=== PATIENT | male | born 1945 | race Caucasian/White ===

== ENCOUNTER 2022-01-15 08:44 | Inpatient (IN) | payer MEDICARE, SELFPAY ==
[2022-01-15] VITALS (13 sets, daily range): BP systolic 121–150; BP diastolic 75–99; PULSE 57–123; RESP 14–18; TEMP 36.4–36.7; O2SAT 94–99; BMI 34.5; BMI 36.6
[2022-01-15] MEDS: Lactated Ringers 1,000 ML 15 ML IV (09:27)
--- NOTE | 2022-01-15 09:51 | OP.PCM_ITS ---
Problems Associated Problem List Diagnoses (1) Lumbar stenosis: Report of Operation Date of Procedure: 01/15/22 Pre-Operative Diagnosis: 1. Lumbar stenosis, L4-5, L5-S1 with spondylosis 2. Lumbar degenerative disc disease L4-5, L5-S1 Post-Operative Diagnosis: 1. Lumbar stenosis, L4-5, L5-S1 with spondylosis 2. Lumbar degenerative disc disease L4-5, L5-S1 Surgery/Procedure Performed:: 1. L4-5 posterior lumbar interbody fusion 2. L5-S1 posterior lumbar interbody fusion 3. Insertion of intervertebral biomechanical device x2 4. Structural allograft for spinal fusion 5. L4 bilateral laminectomies, foraminotomies, facetectomies, decompression of nerve roots 6. L5 bilateral laminectomies, foraminotomies, facetectomies, decompression of nerve roots 7. S1 bilateral laminectomies, foraminotomies, facetectomies, decompression of bilateral nerve roots 8. L4-5 posterior lateral fusion 9. L5-S1 posterior lateral fusion 10. Pedicle screw fixation 11. Local autograft for spinal fusion 12. Neuro monitoring bilateral upper and bilateral lower extremities Description of Surgical Findings:: The patient is a 76-year-old male with intractable back and leg pain. Image studies confirm the above diagnoses. He has failed conservative treatment to include medication, physical therapy and injections. The patient opted for operative intervention understanding the risk to include but not limited to infection, bleeding, damage to nerves arteries and veins, possibility of spinal fluid leak, nonunion, hardware failure, continued pain, need for further surgery, deep vein thrombosis, pulmonary embolism, heart attack, risk of stroke or . The patient was identified in the preoperative holding area. There he received preoperative IV antibiotics Ancef and was then transferred to the operative suite. Once in the operative suite after general endotracheal anesthesia was established, the patient was positioned prone on the [place] operating table. All bony prominences were padded accordingly. The lumbar spine was prepped and draped in a sterile fashion. Bear hugger's were not turned on until the drapes were placed and sealed with [place]. A midline incision was made and taken down to the level of the lumbodorsal fascia. The fascia was divided and subperiosteal dissection was taken down to the level of the bilateral transverse processes and sacral ala of L4, L5, and S1. Deep retractors were placed. A bone scalpel was used to perform cuts in the lamina of L4 and L5 then a series of Kerrisons and rongeurs was used removing the spinous process and lamina at L4 and L5. Then facetectomies of greater than 50% were performed as well as foraminotomies decompressing the bilateral nerve roots. Given the severity of the stenosis I needed to perform wide bilateral laminectomies and near complete facetectomies at L4-5 and L5-S1 in order to decompress the neural elements thus creating instability necessitating fusion. The nerve roots and dura were identified and retracted medially. Then a knife was used to perform annulotomy's at L4-5 and L5-S1 on the right. Endplate elevator, curettes and pituitaries were used to remove disc material. The endplates were prepared with a rasp. An appropriate sized intervertebral peek cage device measuring 14 mm was packed with morselized cancellous allograft and impacted into position at L4-5 completing the posterior lumbar interbody fusion at L4-5. An appropriate sized intervertebral peek cage device measuring 11 mm was packed with morselized cancellous allograft and impacted into position at L5-S1 completing the posterior lumbar interbody fusion at L5-S1. I then proceeded with pedicle screw fixation. Starting points were found at the junction of the superior articular process and transverse process and sacral ala. A power bur was used for the starting points. Pedicle probes were placed bilaterally and then 6.5 x 55 mm screws were placed bilaterally at L4 and L5, 6.5 x 50 mm screws were placed bilaterally at S1. The screws were tested with intraoperative neurophysiologic monitoring and tested within normal limits. Connecting rods were then applied and secured with set screws. I then proceeded with the posterior lateral fusion. This was accomplished by decorticating the transverse processes and sacral ala at L4, L5, and S1. This decorticated bone was then bridged with loca l autograft from the decompression as well as morselized cancellous allograft therefore completing the posterior lateral fusion at L4-5 and L5-S1. The incision was then thoroughly irrigated. Tisseel was placed over the dura as a hemostatic agent. A deep drain was placed. The fascia was closed with #1 Vicryl, subcutaneous with 2-0 Vicryl and skin with 2-0 nylon. A sterile dressing was applied with 4 x 4's ABD and tape. Sponge instrument and needle counts were correct at the end of the case. Neurophysiologic monitoring was maintained at baseline throughout the duration of the case. The patient was extubated and taken to the PACU without incident Surgeon: Teddy Maria Type of Anesthesia: General Drains: Hemovac Estimated Blood Loss (mL): 350 cc Fluids Replaced: 2900 cc Grafts/Implants Used: Unified spine, Talos, Vitae OS, DBM Complications None Admit VTE Documentation VTE Present on Admission: No
--- NOTE | 2022-01-15 09:51 | PCM.PN.ORT ---
Subjective Subjective The patient was seen and examined postoperatively in the PACU. He is resting comfortably. His pain is controlled. He denies any numbness tingling or weakness Objective Data Objective Data Vital Signs: Vital Signs Temp Pulse Resp BP Pulse Ox O2 Del Method 97.5 F L 57 L 16 150/83 H 99 Room Air 01/15/22 09:23 01/15/22 09:23 01/15/22 09:23 01/15/22 09:23 01/15/22 09:23 01/15/22 09:23 Oxygen Delivery Method Room Air Weight: 255 lb Body Mass Index (BMI) 34.5 Physical Exam Const alert, oriented x3 and no apparent distress General Appearance: cooperative and comfortable HEENT normocephalic and head/scalp atraumatic Eyes EOMs intact bilaterally and conjunctivae normal Neck full ROM General: normal visual inspection Chest inspection of chest normal and palpation of chest normal Resp normal respiratory effort and normal air movement Cardio regular rate, regular rhythm and peripheral pulses 2+ throughout GI soft to palpation, non-tender and non-distended Back/Spine Back/Spine Narrative: Dressing clean dry and intact. Drain in place and functioning with small amount of serosanguineous fluid in the drain Cervical Spine: cervical ROM normal Thoracic Spine / Upper Back: normal to inspection Lumbar Spine / Lower Back: normal to inspection Extremity normal to inspection, full ROM, normal capillary refill, no clubbing, cyanosis or edema and no calf tenderness Skin no rashes or lesions noted General Skin Exam: no breakdown Neuro oriented x3, CN's II-XII intact bilaterally, moves all extremities, no focal motor deficits, no sensory deficits noted and deep tendon reflexes 2+ bilaterally Motor Exam: strength 5/5 throughout and muscle tone normal throughout Assessment & Plan Assessment/Plan (1) Lumbar stenosis: PLAN: Okay to admit to floor See orders Pain control and mobilization as tolerated. Back brace on at all times. Continue antibiotics while drain in place Discharge planning, likely home tomorrow
--- NOTE | 2022-01-15 09:51 | PCM.DC.SUM ---
Providers Date of Admission: 01/15/22 Primary Care Physician: Dr. Yanci Tolentino MD Reason For Visit: L4-5 POSTERIOR INTERBODY FUSTION,DECOMPRESSION, Diagnosis Discharge Diagnosis (1) Lumbar stenosis: Status: Acute Code(s): M48.061 - Spinal stenosis, lumbar region without neurogenic claudication Medications at Discharge Home Medications fluoxetine 20 mg capsule (Prozac) 20 mg PO DAILY DEPRESSION 12/19/21 levothyroxine 50 mcg capsule 50 mcg PO DAILY THYROID 12/19/21 lutein 20 mg capsule 20 mg PO DAILY SUPPLEMENT 12/19/21 melatonin 10 mg capsule 10 mg PO QHS SLEEP 12/19/21 metoprolol tartrate 25 mg tablet 25 mg PO DAILY BP 12/19/21 multivitamin 1 cap PO DAILY SUPPLEMENT 12/19/21 rosuvastatin 40 mg tablet (Crestor) 40 mg PO QHS CHOLESTEROL 12/19/21 hydrocodone-acetaminophen 5-325mg 5mg-325mg 1 tab PO Q6H 7 days #28 tabs 01/15/22 Hospital Course Operations - (L4-5, L5-S1 posterior lumbar interbody fusion, decompression, posterior spinal fusion with instrumentation) Summary of Care Provided Minutes Spent on Discharge: 15 Hospital Course: The patient is a 76-year-old male who underwent L4-5, L5-S1 posterior lumbar interbody fusion, decompression, posterior spinal fusion with instrumentation, use of allograft on 01/15/2022. He was subsequently admitted. The hospitalist was consulted for medical management. The patient progressed well. His pain was controlled and he was mobilizing well. His drain was pulled on postoperative day 1. He was subsequently discharged home on 01/16/2022 to follow-up with Dr. Maria in 3 weeks Physical Exam Const alert, oriented x3 and no apparent distress General Appearance: cooperative, comfortable and well kempt HEENT normocephalic and head/scalp atraumatic Eyes EOMs intact bilaterally and conjunctivae normal Neck full ROM General: normal visual inspection Chest inspection of chest normal and palpation of chest normal Resp normal respiratory effort and normal air movement Effort and Inspection: able to speak in complete sentences Cardio regular rate and peripheral pulses 2+ throughout GI soft to palpation, non-tender and non-distended Back/Spine Back/Spine Narrative: Dressing clean dry and intact. Drain in place and functioning with small amount of serosanguineous fluid present. Incision well approximated with interrupted sutures in place. No tenderness erythema drainage or fluctuance Cervical Spine: cervical ROM normal Thoracic Spine / Upper Back: normal to inspection Lumbar Spine / Lower Back: normal to inspection Extremity normal to inspection, full ROM, normal capillary refill, no clubbing, cyanosis or edema and no calf tenderness Skin no rashes or lesions noted General Skin Exam: no breakdown Neuro oriented x3, CN's II-XII intact bilaterally, moves all extremities, no focal motor deficits, no sensory deficits noted and deep tendon reflexes 2+ bilaterally Motor Exam: strength 5/5 throughout and muscle tone normal throughout Weight / BMI Weight Weight: 255 lb Body Mass Index (BMI) 34.5 D/C Instructions Discharge Diet: No restrictions Additional Activity Instructions: No repetitive bending twisting or lifting greater than 5 pounds. Back brace on at all times while out of bed. Change dressing daily Call your doctor if your incision/area has: Continuous Slow Oozing, Sudden Increased Bleeding, Increased Pain/ Swelling, Increased Redness, Foul Smelling Discharge and Swelling at the incision site Call your doctor if you observe: Fever of 101 or Higher, Coldness, Increased Pain, Numbness or Tingling, Change in Color, Inability to urinate, Inability to have a bowel movement, Using more than 1 pad per hour, Shortness of breath, Dizziness, Fainting spells, Swelling in the ankles, Chest pain, Prolonged hiccupping, Increased palpitations (irregular heartbeat), Calf discomfort and Uncontrolled pain Cleanse incision/area with: Do not get Incision Wet and Keep Dressing Clean & Dry Additional Dressing/Incision Instructions: Change dressing daily with iodine gauze and tape. [place] dressing to shower Please Follow Up With: Teddy Maria DO When: 3 weeks Meaningful Use Info Meaningful Use Diagnoses (Choose all that apply): None applicable Discharge Plan Admission Admit Date/Time: 01/15/22 08:44 Attending Provider: Stacy Graham Primary Care Provider: Yanci Tolentino Consulting Providers: Fadia Lomax ; Teddy Maria Instructions Additional Instructions / Restrictions: 1. During your procedure, you received sedation through your IV. Please follow these instructions for the next 24 hours: Do not drive a motor vehicle, do not drink any alcoholic beverages, and do not sign any legal documents or make personal or business decisions. A responsible adult should stay with you at least 6 hours after the procedure. 2. Keep your surgical site/incision clean and the dressing dry and intact. Change dressing daily. You may use an ice pack at the surgical site to reduce any swelling or discomfort. 3. Monitor the incision site for any signs or symptoms of infection. Watch for redness, excessive swelling or drainage, or continued pain at the incision site after 3 days. Contact your physician immediately for a fever, chills or a temperature of 101.5? F or greater. 4. Take your medication exactly as prescribed by your physician. Do not attempt to wean yourself off any of your medications even though your pain is improving. This process needs to be carefully monitored by your doctor. Take any antibiotics prescribed exactly as directed and until they are gone. 5. Avoid stretching, bending, pulling, twisting or any sudden movements. Do not bend or twist at the waist. 6. No lifting greater than 5 pounds. 7. Do not operate a motor vehicle, equipment or a power tool while taking pain medication 8. Do not have any manipulation done by a chiropractor or any other physician without first consulting with the surgeon 9. Please contact our office if you are even scheduled for a CT scan or an MRI. 10. Please call us if you have any questions, problems or concerns. Discharge Orders/Prescriptions Prescriptions: New hydrocodone-acetaminophen 5-325 mg tablet 1 tab PO Q6H 7 Days Qty: 28 0RF Continued multivitamin Capsule 1 cap PO DAILY fluoxetine [Prozac] 20 mg Capsule 20 mg PO DAILY rosuvastatin [Crestor] 40 mg Tablet 40 mg PO QHS metoprolol tartrate 25 mg Tablet 25 mg PO DAILY lutein 20 mg Capsule 20 mg PO DAILY Rx Instructions: give with meal/snack levothyroxine 50 mcg Capsule 50 mcg PO DAILY melatonin 10 mg Capsule 10 mg PO QHS Discontinued aspirin [Aspir-81] 81 mg Tablet,Delayed Release (Dr/Ec) 81 mg PO DAILY Eliquis 5 mg Tablet 5 mg PO BID Referrals / Follow Up: Yanci Tolentino MD [Primary Care Provider] - Disposition Disposition (needs filled in before D/C Order can be placed): Home, Self Care
[2022-01-15] MEDS: Cefazolin 2 GM in 0.9% Normal Saline 100 ML IV (10:54)
--- NOTE | 2022-01-15 11:00 | RAD_ITS ---
INDICATION: L4-5, L5-S1 POSTERIOR FUSION EXAMINATION/TECHNIQUE: X-RAY - XR Spine Lumbar 1 View COMPARISON: None. FINDINGS/ RAD/Lumbar Spine 2 or 3 Views IMPRESSION: Single lateral intraoperative fluoroscopic image of the lumbar spine obtained. Fluoroscopic duration information not provided. Linear metallic surgical instrument and adjacent metallic clips within posterior lower lumbar soft tissues. Adequate alignment of the imaged spine with preserved vertebral body heights and disc spaces. Otherwise, see separate operative report for procedure details. Electronically Signed: Romero Guaman MD at 4:25 EDT ,
[2022-01-15] MEDS: Bupivacaine 0.25% 30 ML Vial (11:21)
--- NOTE | 2022-01-15 18:25 | PCM.CONS.GEN ---
Assessment & Plan Assessment/Plan (1) Lumbar stenosis: PLAN: Plan The patient is a 76 y/o M w/ PMHx: Obesity, Former tobacco use, Anxiety and Depression, OA, Hypothyroidism, Chronic imbalance, PAF, CAD s/p PCI who presents to the [facility] on 01/15/22 with history of ongoing intractable back and lower extremity pains with failed conservative outpatient interventions including medication, physical therapy and injections admitted for planned intervention per Dr. Maria undergoing lumbar surgery. #1. Lumbar stenosis L4-5, L5-S1 with spondylolisthesis, lumbar generative disc disease: Failed conservative therapies and treatments, admitted per Dr. Maria as noted, 01/15/22 s/p L4-5 posterior lumbar interbody fusion, L5-S1 posterior lumbar interbody fusion, intervertebral biomechanical device x2 placement, structural allograft for spinal fusion, L4, 5, S1 bilateral laminectomies/foraminotomies, fasciotomies, decompression of nerve roots, L4-5 posterior lateral fusion, L5-S1 posterior lateral fusion, pedicle screw fixation, local autograft for spinal fusion, post-operative pain management, bowel regimen, DVT Prophylaxis, PT/OT/CM per Orthopedic surgery discretion. #2. CAD: Status post prior PCI, once his surgery is amenable recommend continuation of aspirin therapy, continued on metoprolol and statin therapy, not on ABBEY inhibitor/ARB per review of records. #3. PAF: Noted in history, from reports prior on eliquis, held currently prior to current planned OR, once able would recommend resumption of eliquis therapy, continue metoprolol regimen. #4. Former tobacco use: Encourage continued tobacco cessation. #5. Hypertension: Continue home regimen including metoprolol with hold parameters as needed, PRN hydralazine. #6. Hyperlipidemia: We will continue patient on statin therapy. #7. Hypothyroidism: We will continue patient home levothyroxine regimen. #8. Obesity: Weight loss and lifestyle changes encouraged. #9. Anxiety and depression: We will continue patient on Prozac regimen. #10. DVT prophylaxis: SCDs, resume eliquis once cleared per surgery. HPI Consult Data Date of Consult: 01/15/22 HPI Narrative Reason for Consultation: Medical consultation HPI Narrative: The patient is a 76 y/o M w/ PMHx: Obesity, Former tobacco use, Anxiety and Depression, OA, Hypothyroidism, Chronic imbalance, PAF, CAD s/p PCI who presents to the [facility] on 01/15/22 with history of ongoing intractable back and lower extremity pains with failed conservative outpatient interventions including medication, physical therapy and injections admitted for planned intervention per Dr. Maria undergoing L4-5 posterior lumbar interbody fusion, L5-S1 posterior lumbar interbody fusion, intervertebral biomechanical device x2 placement, structural allograft for spinal fusion, L4, 5, S1 bilateral laminectomies/foraminotomies, fasciotomies, decompression of nerve roots, L4-5 posterior lateral fusion, L5-S1 posterior lateral fusion, pedicle screw fixation, local autograft for spinal fusion with requested postoperative medical management consultation. Patient currently with ports that he has some lumbar discomfort at the site of surgery and rates it 3 out of 10 in severity but notes is mostly dull aching and improved from his previous pain prior to surgery. He denies any lower extremity neuropathy, paresthesias or shooting pains. [facility] Medical History (Updated 01/15/22 @ 18:[address] Fadia Lomax MD) Back pain Cardiology follow-up encounter Depression Former smoker High cholesterol History of atrial fibrillation History of echocardiogram History of pain when walking History of steroid therapy History of stress test Hypertension Poor balance Thyroid disease Walker as ambulation aid Wears glasses Wears partial dentures Home Medications fluoxetine 20 mg capsule (Prozac) 20 mg PO DAILY DEPRESSION 12/19/21 [History Last Taken 01/15/22] levothyroxine 50 mcg capsule 50 mcg PO DAILY THYROID 12/19/21 [History Last Taken Unknown] lutein 20 mg capsule 20 mg PO DAILY SUPPLEMENT 12/19/21 [History Last Taken Unknown] melatonin 10 mg capsule 10 mg PO QHS SLEEP 12/19/21 [History Last Taken Unknown] metoprolol tartrate 25 mg tablet 25 mg PO DAILY BP 12/19/21 [History Last Taken Unknown] multivitamin 1 cap PO DAILY SUPPLEMENT 12/19/21 [History Last Taken Unknown] rosuvastatin 40 mg tablet (Crestor) 40 mg PO QHS CHOLESTEROL 12/19/21 [History Last Taken Unknown] hydrocodone-acetaminophen 5-325mg 5mg-325mg 1 tab PO Q6H 7 days #28 tabs 01/15/22 [Rx Last Taken Unknown] Allergy/AdvReac Type Severity Reaction Status Date / Time No Known Allergies Allergy Verified 01/15/22 09:19 Family History (Updated 01/15/22 @ 18:[address] Fadia Lomax MD) Father Heart disease Hypertension CVA (cerebral vascular accident) Mother Cancer Surgical History (Updated 01/15/22 @ 18:[address] Fadia Lomax MD) History of ankle surgery History of cardiac catheterization History of mandibular surgery Hx of colonoscopy Hx of heart artery stent Hx of tonsillectomy Hx of total hip arthroplasty Social History (Updated 01/15/22 @ 18:[address] Fadia Lomax MD) household members: spouse Smoking Status: Former smoker alcohol intake: current alcohol intake frequency: holidays/special occasions only substance use type: does not use ROS ROS Narrative Admission Review of Systems: CONSTITUTIONAL: No weight loss, fever, chills, + weakness or fatigue. HEENT: Eyes: No visual loss, blurred vision, double vision or yellow sclerae. Ears, Nose, Throat: No hearing loss, sneezing, congestion, runny nose or sore throat. SKIN: + recent OR with dressing in place, no drainage. CARDIOVASCULAR: No chest pain, chest pressure or chest discomfort, palpitations, edema, orthopnea, syncopal events. RESPIRATORY: No shortness of breath, cough or sputum, wheezing, hemoptysis. GASTROINTESTINAL: No anorexia, nausea, vomiting or diarrhea, abdominal pain, melena, BRBPR. GENITOURINARY: No dysuria, frequency, urgency or retention. NEUROLOGICAL: + Chronic back pain, lumbar, no current paresthesias/focal weakness. No headache, dizziness, syncope, paralysis, ataxia,change in bowel or bladder control, seizure. MUSCULOSKELETAL: + muscle, back pain, joint pain or stiffness. HEMATOLOGIC: No anemia, bleeding or bruising. LYMPHATICS: No enlarged nodes. No history of splenectomy. PSYCHIATRIC: + history of depression or anxiety. ENDOCRINOLOGIC: No reports of sweating, cold or heat intolerance. No polyuria or polydipsia. ALLERGIES: No history of asthma, hives, eczema or rhinitis. Physical Exam Narrative Physical Examination: General: Awake, alert, oriented x 3 and cooperative, laying in MedSurg bed, notes pain 3 of 10 in the lumbar spine at the site of surgery otherwise no complaints Skin: Normal color, normal turgor, no icterus, no cyanosis except expected postop dressing with no drainage. HEENT: AT/NC, EOMI, PERRLA, mildly dry MM, no carotid bruits or JVD noted. Lungs: CTA bilaterally, moderate effort, mild decrease BL bases, no rales, ronchi or wheezing. Heart: Regular rate and rhythm; no gallop, rub audible. Abdomen: Soft, obese, NTTP, ND, mildly hyperactive BS, no HSM. Extremities: No cyanosis, clubbing, or edema, peripheral sensation intact, peripheral pulses bilaterally lower extremities. Neurological: Patient awake, alert, oriented as noted, cognitive function intact; pupils equally reactive to light and accommodation, cranial nerves II-XII grossly normal, moving all 4 extremities although expected limitation given recent lumbar surgery, no focal deficits, no paresthesias, strength moderately to severely globally decreased given recent intervention as expected. Psychiatric: Affect appears mildly fatigued otherwise normal, no acute evidence of depressive or anxiety feelings. Charges/Coding Visit Charges Office Visits / Consults: 10101 IP Consult L4
[2022-01-15] MEDS: Lactated Ringers 1,000 ML 100 ML IV (21:07)
[2022-01-15] MEDS: Cefazolin 1 GM/50 ML BAG IV (21:09)
[2022-01-15] MEDS: Acetaminophen 500 MG Tablet 1000 MG PO (21:12)
[2022-01-15] MEDS: Metoprolol Tartrate 25 MG Tablet PO (21:14)
[2022-01-15] MEDS: MELATONIN 10 MG TABLET PO (22:57)
[2022-01-15] MEDS: ROSUVASTATIN CALCIUM 40 MG TABLET PO (22:57)
[2022-01-16] MEDS: Cefazolin 1 GM/50 ML BAG IV (01:02)
[2022-01-16 03:32] VITALS: BP 110/74; PULSE 105; RESP 14; TEMP 37.1; O2SAT 96
[2022-01-16 06:00] VITALS: PULSE 86
[2022-01-16] MEDS: Levothyroxine 50 MCG Tablet PO (06:25)
[2022-01-16] MEDS: Acetaminophen 500 MG Tablet 1000 MG PO (06:25)
[2022-01-16 07:37] VITALS: PULSE 81
[2022-01-16 08:25] VITALS: BP 130/76; PULSE 74; RESP 16; TEMP 36.8; O2SAT 97
[2022-01-16 08:46] VITALS: PULSE 72
[2022-01-16] MEDS: Ensure Surgery 237 ML LIQUID PO (08:46)
[2022-01-16] MEDS: Metoprolol Tartrate 25 MG Tablet PO (08:46)
--- NOTE | 2022-01-16 09:15 | CASEMGMT ---
KELECHI FARAH Assessment: Face to Face with pt for initial transition planning/care coordination assessment. KELECHI FARAH introduced self and role at [facility], pt voices understanding and consents to assessment. Pt is A/O x4 and answers all questions appropriately at this time. Pt sitting up in chair dressed and ready for dc with present at bedside. Care providers, pharmacy, and demographics verified/updated. Admitting Dx: L4-5 posterior interbody fusion, decompression PCP:Rajan Specialists:Candace, spine OR; Chinyere, cardio; randall Mckinney Preferred [facility]: [facility] Insurance: [employer] Prescription Benefit: yes LW/HPOA: Pt states he has a LW/DPOA and his DPOA is his , Rubia Figueroa. He is aware it is not on file at [facility] and he may bring in to be scanned into his chart. LNOK: Rubia Figueroa, Living Arrangements: Pt lives with his in a single story house with 1 step to enter with a grab bar. Pt reports he was I in ADL's and denies concerns at home. Transportation: Pt drives self and denies concerns with transportation. Pt will provide transportation until he is able to drive again. DME/HHC/SNF: Pt has a cane, FWW and grab bars in the bathroom. Pt denies hx of HHC or SNF stays. Pt states no concerns with going home at time of dc. Pt states no further concerns/needs. CM to follow. Advised pt to ask CM if any further question/concerns/needs arise, voices understanding. Pt Goal: Home Plan: Home
== END 2022-01-16 11:00 | disposition home or self-care (01) | DRG 455 ==
LOC: ACINP 10:02 → MS3 14:54
PROVIDERS: Admitting Provider Orthopaedic Surgery; PCP Internal Medicine; Visit Provider Internal Medicine
PROC: 0SG10AJ Fusion of 2 or more Lumbar Vertebral Joints with Interbody Fusion Device, Posterior Approach, Anterior Column, Open Approach (ICD-10-PCS; CPT 22630; principal; 2022-01-15 10:05)
DX: M48.061 Spinal stenosis, lumbar region without neurogenic claudication (principal); M47.26 Other spondylosis with radiculopathy, lumbar region; M43.17 Spondylolisthesis, lumbosacral region; M51.36 Other intervertebral disc degeneration, lumbar region; M46.96 Unspecified inflammatory spondylopathy, lumbar region; E03.9 Hypothyroidism, unspecified; I48.0 Paroxysmal atrial fibrillation; I10 Essential (primary) hypertension; E78.00 Pure hypercholesterolemia, unspecified; I25.10 Atherosclerotic heart disease of native coronary artery without angina pectoris; E66.8 Other obesity; F41.9 Anxiety disorder, unspecified; F32.A Depression, unspecified; Z79.890 Hormone replacement therapy; Z79.899 Other long term (current) drug therapy; Z87.891 Personal history of nicotine dependence; Z96.641 Presence of right artificial hip joint; Z95.5 Presence of coronary angioplasty implant and graft
CPT/HCPCS: 72100; 76000; 97161; C1713; J7120; J2405